=== PATIENT | male | born 1980 | race Caucasian/White ===

== ENCOUNTER 2024-06-18 10:06 | Emergency (ER) | payer OTHER ==
[2024-06-18] MEDS: Benzocaine 20% Topical Spray UD MUCMEM ONE (10:23)
[2024-06-18] MEDS: Lidocaine 2% Viscous Solution 15 ML UD PO ONE (10:23)
[2024-06-18] MEDS: Amoxicillin/Clavulanate K 875-125 MG Tab PO ONE (10:28)
== END 2024-06-18 10:31 | disposition home or self-care (01) ==
LOC: MW.ED 10:06
DX: K08.89 Other specified disorders of teeth and supporting structures (principal); Z75.8 Other problems related to medical facilities and other health care
CPT/HCPCS: 99282; A9270